=== PATIENT | female | born 1975 | race Caucasian/White ===

== ENCOUNTER 2018-04-15 14:43 | Emergency (ER) | payer OTHER, SELFPAY | END 2018-04-15 15:15 | disposition home or self-care (01) | LOC: BURERS 14:43 | DX: S43.422A Sprain of left rotator cuff capsule, initial encounter (principal); F17.210 Nicotine dependence, cigarettes, uncomplicated; X50.0XXA Overexertion from strenuous movement or load, initial encounter | CPT/HCPCS: 93005 ==